=== PATIENT | male | born 1960 | race Caucasian/White ===

== ENCOUNTER → 2020-10-16 | Outpatient (CLI) | payer OTHER ==
[~2020-10-16] MED LIST: OMNIPAQUE 350 MG/ML, 100ML BOTTLE ONE
[2020-10-16 12:59] LABS: CREATININE 1.28 mg/dL (0.7-1.3)
== END | disposition home or self-care (01) ==
LOC: RAD 12:19
PROVIDERS: ATTEND Family Medicine
DX: N40.0 Benign prostatic hyperplasia without lower urinary tract symptoms (principal); R10.84 Generalized abdominal pain
CPT/HCPCS: 36415; 74177; 82565; Q9967